=== PATIENT | male | born 1980 | race Caucasian/White ===

== ENCOUNTER 2025-06-22 09:21 | Emergency (ER) | payer OTHER ==
[~2025-06-22] VITALS: Ht 190.5 cm; Wt 111.1 kg
[2025-06-22] MEDS ORDERED: LIDO30AD10 TP (10:04)
[2025-06-22] MEDS ORDERED: CYCL10TA9 PO (10:04)
[2025-06-22] MEDS ORDERED: KETO10TA2 PO (10:04)
[2025-06-22] MEDS ORDERED: LIDOCAINE 5% (PATCH) 1 EA PATCH TP ONE (10:10)
[2025-06-22] MEDS ORDERED: CYCLOBENZAPRINE 10 MG TABLET ONE (10:10)
[2025-06-22] MEDS ORDERED: KETOROLAC TROMETHAMINE 15 MG/ML VIAL ONE (10:10)
[2025-06-22] MEDS: KETOROLAC TROMETHAMINE 15 MG/ML VIAL IM ONE (10:15)
[2025-06-22] MEDS: CYCLOBENZAPRINE 10 MG TABLET PO ONE (10:15)
[2025-06-22] MEDS: LIDOCAINE 5% (PATCH) 1 EA PATCH TP SCH (10:16)
[2025-06-22 10:31] VITALS: BP 162/87; TEMP 98.8; O2SAT 100
== END 2025-06-22 10:31 | disposition home or self-care (01) ==
LOC: ER 09:21
DX: S16.1XXA Strain of muscle, fascia and tendon at neck level, initial encounter (principal); X58.XXXA Exposure to other specified factors, initial encounter; Y93.89 Activity, other specified; Y92.89 Other specified places as the place of occurrence of the external cause; Y99.9 Unspecified external cause status
CPT/HCPCS: 99283; 96372; J1885